=== PATIENT | male | born 1960 | race Caucasian/White ===

== ENCOUNTER 2019-01-03 09:26 | Emergency (ER) | payer BC ==
[2019-01-03 09:37] VITALS: BP 121/72
--- NOTE | 2019-01-03 10:06 | UC ---
General HPI - HPI Summary HPI Summary: Patient is a 58-year-old male, history of anxiety, here for a medication refill. Patient is visiting from [place] and forgot his clonazepam at home. Patient takes 1 mg 4 times a day. Patient's been on the medicine for 12 years for anxiety. Patient gets monthly refills by Dr. Mendez in [place]. Patient went to [facility] this morning to try to get a refill but was not able to. Patient called his doctor but cannot get his medicine. Patient's here until Saturday morning. Patient is feeling flushed, anxious, tachycardic. medications reviewed - History of Current Complaint Chief Complaint: UCMedRefill Stated Complaint: MED REQUEST Time Seen by Provider: 01/03/19 09:40 Hx Obtained From: Patient Pain Intensity: 2 - Allergy/Home Medications Allergies/Adverse Reactions: Allergies Allergy/AdvReac Type Severity Reaction Status Date / Time No Known Allergies Allergy Verified 01/03/19 09:37 Home Medications: Home Medications clonazePAM TAB(*) [Klonopin TAB(*)] 4 mg PO QID 01/03/19 [History Confirmed ] PMH/Surg Hx/FS Hx/Imm Hx Previously Healthy: Yes - Surgical History Surgical History: None - Family History Known Family History: Positive: Non-Contributory - Social History Alcohol Use: None Substance Use Type: None Smoking Status (MU): Heavy Every Day Tobacco Smoker Review of Systems All Other Systems Reviewed And Are Negative: Yes Constitutional: Negative: Fever Skin: Negative: Rash ENT: Negative: Sore Throat Respiratory: Negative: Shortness Of Breath, Cough Cardiovascular: Negative: Palpitations, Chest Pain Gastrointestinal: Negative: Abdominal Pain, Vomiting, Diarrhea Physical Exam - Summary Physical Exam Summary: Vital Signs Reviewed: Yes A+Ox3, no distress Eyes: Conjunctiva Clear, PERRL. EOM intact and full ENT: Hearing grossly normal TM x 2 clear, moist, uvula midline, no exudate, no erythema Neck: Positive: Supple Respiratory: Positive: No respiratory distress, No accessory muscle use + CTA throughout no w/r Cardiovascular: RRR nl s1, s2 no m/r CBT <2 sec abd soft + BS nt/nd no guarding, no distension Musculoskeletal Exam: SMITH x 4 without difficulty Strength Intact, ROM Intact Neurological: Positive: Alert, + sensation throughout Psychological: Positive: Normal Response To Family Skin: no rash, no ecchymosis Vital Signs: Initial Vital Signs Temp 97.5 F 01/03/19 09:33 Pulse 83 01/03/19 09:33 Resp 18 01/03/19 09:33 BP 121/72 01/03/19 09:33 Pulse Ox 100 01/03/19 09:33 Course/Dx - Course Course Of Treatment: Patient is here requesting his clonazepam be refilled. Patient is on vacation from [place], [place] and forgot his medication. Patient is a 29 feeling slight withdrawal symptoms with feeling anxious and flushed skin. Patient takes 1 mg 4 times a day. A E[employer]SE AND THROAT SPECIALIST review was done and patient's story appears to be what he is stating to me. Patient was given 13 doses of medication to get him until Saturday. - Diagnoses Provider Diagnosis: Anxiety Discharge ED - Sign-Out/Discharge Documenting (check all that apply): Patient Departure All imaging exams completed and their final reports reviewed: No Studies - Discharge Plan Condition: Stable Disposition: HOME Prescriptions: clonazePAM [Clonazepam] 1 mg PO QID #13 tablet MDD 4 mg Patient Education Materials: Anxiety (ED) Referrals: No Primary Care Phys,NOPCP [Primary Care Provider] - Additional Instructions: Please have your medications filled Please follow up with your primary care doctor in [place] - Billing Disposition and Condition Condition: STABLE Disposition: Home
== END 2019-01-03 10:07 | disposition home or self-care (01) ==
LOC: UCEAST 09:26
DX: F41.9 Anxiety disorder, unspecified (principal); Z76.0 Encounter for issue of repeat prescription; F17.200 Nicotine dependence, unspecified, uncomplicated
CPT/HCPCS: 99202; G0463